=== PATIENT | female | born 1975 | race Caucasian/White ===

== ENCOUNTER 2024-10-03 15:19 | Emergency (ER) | payer BC ==
[~2024-10-03] VITALS: Ht 172.7 cm; Wt 136.1 kg
[2024-10-03 15:28] VITALS: TEMP 97.5
[2024-10-03 16:02] LABS: COLOR,URINE YELLOW (YELLOW)
[2024-10-03 16:03] LABS: BASOPHILS # (AUTO) 0.1 (0.0-0.1); BASOPHILS % 0.6 % (0.0-1.0); BILIRUBIN,URINE NEGATIVE (NEGATIVE); EOSINOPHILS # (AUTO) 0.2 (0.0-0.4); EOSINOPHILS % 2.1 % (0.0-6.0); GLUCOSE, URINE NEGATIVE (NEGATIVE); HEMATOCRIT 43.5 % (34.2-44.1); HEMOGLOBIN 14.2 g/dL (12.0-16.0); KETONES,URINE NEGATIVE (NEGATIVE); LEUKOCYTE ESTERASE ,URINE LARGE (NEGATIVE); LYMPHOCYTES # (AUTO) 3.3 (1.0-3.2); MEAN CORPUSCULAR HEMOGLOBIN 28.1 pg (28-32); MEAN CORPUSCULAR HGB CONC 32.6 g/dL (31-35); MEAN CORPUSCULAR VOLUME 86.1 fL (81-99); MONOCYTES # (AUTO) 0.8 (0.2-0.8); MONOCYTES % 7.2 % (4.4-11.3); NEUTROPHILS % 57.7 % (38.7-80.0); PLATELET COUNT 269 x10e3/uL (140-360); RED BLOOD COUNT 5.05 x10e6/uL (3.6-5.1); RED CELL DISTRIBUTION WIDTH 13.1 % (11.7-14.4); URINE UROBILINOGEN 0.2 mg/dL (0.2 - 1); WHITE BLOOD COUNT 10.42 x10e3/uL (4.8-10.8)
[2024-10-03] MEDS: SODIUM CHLORIDE 0.9% 1000ML 1,000 ML IV STA (16:03)
[2024-10-03] MEDS: KETOROLAC TROMETHAMINE 30 MG/ML VIAL IV STA (16:04)
[2024-10-03 16:10] LABS: CLARITY,URINE CLOUDY (CLEAR)
[2024-10-03 16:11] LABS: NITRITE,URINE NEGATIVE (NEGATIVE); PH,URINE 6 (5 - 7)
[2024-10-03 16:12] LABS: PROTEIN,URINE DIPSTICK NEGATIVE (NEGATIVE)
[2024-10-03 16:27] LABS: ANION GAP 16.5 mmol/L (8-16); BILIRUBIN,TOTAL 0.5 mg/dL (0.2-1.2); CALCIUM 10.2 mg/dL (8.4-10.2); CREATININE, SERUM 0.85 mg/dL (0.57-1.11); MAGNESIUM 1.8 MG/DL (1.3-2.1); POTASSIUM 3.5 mmol/L (3.5-5.1); TOTAL PROTEIN 8.2 g/dL (6.5-8.1)
[2024-10-03 16:33] LABS: RBC,URINE 0-5 /HPF (0-5); WBC,URINE (MAN) 21-50 /HPF (0-5)
[2024-10-03 16:34] LABS: BACTERIA,URINE FEW /HPF; EPITHELIAL CELLS,URINE MODERATE /LPF
[2024-10-03 18:00] VITALS: PULSE 63; RESP 18; O2SAT 99
[2024-10-03] MEDS ORDERED: CEFDINIR300 MG PO (18:09)
[2024-10-03] MEDS ORDERED: KETOROLAC TROME10 MG PO (18:09)
== END 2024-10-03 18:32 | disposition home or self-care (01) ==
LOC: ER 15:47
DX: R10.9 Unspecified abdominal pain (principal); N12 Tubulo-interstitial nephritis, not specified as acute or chronic; N39.0 Urinary tract infection, site not specified; R11.0 Nausea; E11.65 Type 2 diabetes mellitus with hyperglycemia; E78.5 Hyperlipidemia, unspecified
CPT/HCPCS: 36415; 74176; 80053; 81001; 83735; 84702; 85025; 87086; 99284; J1885; J7030